=== PATIENT | male | born 1990 | race Two or more races ===

== ENCOUNTER 2018-10-06 15:23 | Emergency (ER) | payer MEDICAID | END 2018-10-07 13:14 | disposition home or self-care (01) | LOC: E/R 10-07 13:14 | DX: J06.9 Acute upper respiratory infection, unspecified (principal) | CPT/HCPCS: 71045; 99283-25 ==

== ENCOUNTER 2018-11-21 21:09 | Emergency (ER) | payer MEDICAID ==
[2018-11-22] MEDS: ALBUTEROL 0.083% (NEB) 2.5 MG/3 ML AMP NEB (00:59)
[2018-11-22] MEDS: IPRATROPIUM (NEB) 0.5 MG/2.5 ML AMP HHN (00:59)
[2018-11-22] MEDS: DEXAMETHASONE 10 MG/ML 1 ML INJ IM (01:01)
[2018-11-22] MEDS: KETOROLAC 60 MG INJ IM (01:01)
[2018-11-22] MEDS: PROMETHAZINE/DM (CUP) PO (01:04)
[2018-11-22] MEDS: BENZONATATE 100 MG CAP PO (01:04)
== END 2018-11-22 02:12 | disposition home or self-care (01) ==
LOC: FTE 11-22 02:12
DX: J30.9 Allergic rhinitis, unspecified (principal)
CPT/HCPCS: 94664; 96372; 99284-25